=== PATIENT | female | born 1955 | race Caucasian/White ===

== ENCOUNTER 2017-12-27 11:42 | Inpatient (IN) | payer BC ==
[2017-12-27 14:06] LABS: ADD MAN DIFF? NO; BASOPHILS % 0.4 % (0.0-2.0); EOSINOPHILS # 0.1 10^3/ul (0.0-0.5); EOSINOPHILS % 1.7 % (0.0-7.0); HEMATOCRIT 37.8 % (37.0-47.0); HEMOGLOBIN 12.6 g/dl (12.0-16.0); LYMPHOCYTES # 1.2 10^3/ul (0.8-2.9); LYMPHOCYTES % 21.9 % (15.0-51.0); MEAN CORPUSCULAR HGB CONC 33.3 g/dl (32.0-37.0); MEAN CORPUSCULAR VOLUME 87.1 fl (82.0-101.0); MEAN PLATELET VOLUME 9.1 fl (7.4-10.4); MONOCYTE # 0.2 10^3/ul (0.3-0.9); MONOCYTES % 4.5 % (0.0-11.0); NEUTROPHIL # 3.8 10^3/ul (1.6-7.5); NEUTROPHILS % 71.1 % (39.0-77.0); PLATELET COUNT 292 10^3/UL (140-415); RED BLOOD COUNT 4.34 10^6/ul (4.20-5.40); RED CELL DISTRIBUTION WIDTH 14.5 % (11.5-14.5)
[2017-12-27 14:06] LABS: WHITE BLOOD COUNT 5.4 10^3/ul (4.8-10.8)
[2017-12-27 14:09] LABS: ADD UMIC YES; UR ASCORBIC ACID NEGATIVE (NEGATIVE); UR BILIRUBIN (Dip) NEGATIVE (NEGATIVE); UR BLOOD (Dip) 1+ mg/dL (NEGATIVE); UR CLARITY CLEAR (CLEAR); UR COLOR STRAW (YELLOW); UR GLUCOSE (Dip) 3+ mg/dL (NEGATIVE); UR KETONES (Dip) NEGATIVE (NEGATIVE); UR LEUKOCYTE ESTERASE (Dip) NEGATIVE Leu/ul (NEGATIVE); UR NITRITE (Dip) NEGATIVE (NEGATIVE); UR RBC 3 /HPF (0-5); UR SQUAMOUS EPITHELIAL CELL FEW /HPF (FEW); UR TOTAL PROTEIN (Dip) 3+ mg/dl (NEGATIVE); UR UROBILINOGEN (Dip) NEGATIVE (NEGATIVE); UR WBC 2 /HPF (0-5)
[2017-12-27] MEDS: SOD CHLORIDE 0.9% 1,000 ML IV (14:18)
[2017-12-27 14:46] LABS: ALANINE AMINOTRANSFERASE 27 IU/L (13-69); ALBUMIN/GLOBULIN RATIO 0.85; ALKALINE PHOSPHATASE 147 IU/L (42-121); ANION GAP 11 (8-16); ASPARTATE AMINO TRANSFERASE 25 IU/L (15-46); BILIRUBIN,INDIRECT 0.1 mg/dl (0-1.1); BILIRUBIN,TOTAL 0.1 mg/dl (0.2-1.3); BLOOD UREA NITROGEN 28 mg/dl (7-20); CARBON DIOXIDE 27 mmol/L (21-31); CHLORIDE 103 mmol/L (97-110); CREATININE 1.47 mg/dl (0.44-1.00); LIPASE 91 U/L (23-300); POTASSIUM 4.3 mmol/L (3.5-5.1); SODIUM 137 mmol/L (135-144); TOTAL PROTEIN 6.5 g/dl (6.1-8.1)
[2017-12-27 14:48] LABS: GLUCOSE 492 mg/dl (70-220)
[2017-12-27 14:49] LABS: ACETONE NEGATIVE (NEGATIVE)
[2017-12-27] MEDS: INSULIN REGULAR, HUMAN 100 UNIT/1 ML 3ML VIAL SC (15:49)
[2017-12-27] MEDS ORDERED: LORAZEPAM 0.5 MG TAB PO (17:30)
[2017-12-27] MEDS ORDERED: ACETAMINOPHEN 325 MG TAB PO (17:30)
[2017-12-27] MEDS ORDERED: NACL 0.9% 3 ML SYG IV (17:30)
[2017-12-27] MEDS ORDERED: ONDANSETRON 4 MG INJ IV ×2 (17:30)
[2017-12-27] MEDS ORDERED: morphine 2 MG INJ IV (17:30)
[2017-12-27] MEDS ORDERED: HYDROCODONE/APAP (5/325) TAB PO (17:30)
[2017-12-27] MEDS ORDERED: GLUCAGON 1 MG INJ IM (18:30)
[2017-12-27] MEDS ORDERED: GLUCOSE GEL 15 GRAM TUBE BUCCAL (18:30)
[2017-12-27] MEDS ORDERED: DEXTROSE 50% 50 ML SYRINGE IV ×2 (18:30)
[2017-12-27] MEDS ORDERED: GLUCOSE GEL 15 GRAM TUBE PO ×2 (18:30)
[2017-12-27] MEDS: hydrALAzine 20 MG INJ IV (18:49)
[2017-12-27] MEDS ORDERED: AMLODIPINE 10 MG TAB PO ×2 (19:00)
[2017-12-27] MEDS: INSULIN ASPART [NOVOLOG] 3 ML PEN SC ×2 (19:05→21:07)
[2017-12-27] MEDS: ARTIFICIAL TEARS 15 ML OPH BOTH EYES (21:03)
[2017-12-27] MEDS: ATORVASTATIN 80 MG TAB PO (21:04)
[2017-12-27] MEDS: GABAPENTIN 300 MG CAP PO (21:04)
[2017-12-27] MEDS: INSULIN GLARGINE [LANtus] 3 ML PEN SC (21:07)
[2017-12-27] MEDS: SOD CHLORIDE 0.45% 1,000 ML IV (23:12)
[2017-12-27] MEDS: ACETAMINOPHEN 325 MG TAB PO (23:16)
[2017-12-28] MEDS: ACCU-CHEK XX (02:00)
[2017-12-28] MEDS: SOD CHLORIDE 0.45% 1,000 ML IV ×2 (05:34→12:27)
[2017-12-28] MEDS ORDERED: LEVOTHYROXINE 50 MCG TAB (05:38)
[2017-12-28] MEDS: LEVOTHYROXINE 50 MCG TAB PO (05:39)
[2017-12-28] MEDS: PANTOPRAZOLE (EC) 40 MG TAB PO (05:40)
[2017-12-28 07:20] LABS: ADD MAN DIFF? NO
[2017-12-28 07:27] LABS: BASOPHILS % 0.6 % (0.0-2.0); EOSINOPHILS # 0.2 10^3/ul (0.0-0.5); HEMATOCRIT 30.8 % (37.0-47.0); HEMOGLOBIN 10.3 g/dl (12.0-16.0); LYMPHOCYTES # 1.8 10^3/ul (0.8-2.9); LYMPHOCYTES % 34.9 % (15.0-51.0); MEAN CORPUSCULAR HEMOGLOBIN 28.9 pg (29.0-33.0); MEAN CORPUSCULAR HGB CONC 33.4 g/dl (32.0-37.0); MEAN CORPUSCULAR VOLUME 86.3 fl (82.0-101.0); MEAN PLATELET VOLUME 9.6 fl (7.4-10.4); MONOCYTE # 0.3 10^3/ul (0.3-0.9); MONOCYTES % 6.3 % (0.0-11.0); NEUTROPHIL # 2.8 10^3/ul (1.6-7.5); PLATELET COUNT 260 10^3/UL (140-415); RED BLOOD COUNT 3.57 10^6/ul (4.20-5.40)
[2017-12-28 07:43] LABS: HEMOGLOBIN A1C 8.3 % (0-5.9)
[2017-12-28 07:53] LABS: ALANINE AMINOTRANSFERASE 22 IU/L (13-69); ALBUMIN 2.1 g/dl (3.3-4.9); ALBUMIN/GLOBULIN RATIO 0.72; ALKALINE PHOSPHATASE 75 IU/L (42-121); ANION GAP 3 (8-16); ASPARTATE AMINO TRANSFERASE 17 IU/L (15-46); BLOOD UREA NITROGEN 25 mg/dl (7-20); CALCIUM 8.5 mg/dl (8.4-10.2); CARBON DIOXIDE 25 mmol/L (21-31); CHLORIDE 110 mmol/L (97-110); CHOLESTEROL 275 mg/dl (100-200); CREATININE 1.57 mg/dl (0.44-1.00); GLUCOSE 207 mg/dl (70-220); HDL CHOLESTEROL 54 mg/dl (35-98); LDL CHOLESTEROL,CALCULATED 165 mg/dl; POTASSIUM 3.3 mmol/L (3.5-5.1); SODIUM 135 mmol/L (135-144); TRIGLYCERIDES 278 mg/dl (0-149)
[2017-12-28] MEDS: FOLIC ACID 1 MG TAB PO (08:33)
[2017-12-28] MEDS: DOCUSATE SODIUM 250 MG CAP PO (08:33)
[2017-12-28] MEDS: GABAPENTIN 300 MG CAP PO ×2 (08:33→20:29)
[2017-12-28] MEDS: METOPROLOL (XL) 50 MG TAB PO (08:34)
[2017-12-28] MEDS: FERROUS SULFATE (EC) 325 MG TAB PO (08:34)
[2017-12-28] MEDS: HYDROCHLOROTHIAZIDE 25 MG TAB PO (08:34)
[2017-12-28] MEDS: FUROSEMIDE 40 MG TAB PO (08:34)
[2017-12-28] MEDS: ARTIFICIAL TEARS 15 ML OPH BOTH EYES ×3 (08:35→20:29)
[2017-12-28] MEDS: INSULIN ASPART [NOVOLOG] 3 ML PEN SC ×7 (08:36→20:31)
[2017-12-28] MEDS: LOSARTAN 50 MG TAB PO (08:42)
[2017-12-28] MEDS: POTASSIUM CHLORIDE 20 MEQ POWDER FOR ORAL SOLN PO (10:32)
[2017-12-28] MEDS: ACETAMINOPHEN 325 MG TAB PO ×2 (10:32→17:18)
[2017-12-28] MEDS: ATORVASTATIN 80 MG TAB PO (20:29)
[2017-12-28] MEDS: INSULIN GLARGINE [LANtus] 3 ML PEN SC (20:30)
[2017-12-28] MEDS: hydrALAzine 20 MG INJ IV (20:33)
[2017-12-29] MEDS: ACCU-CHEK XX (01:47)
[2017-12-29] MEDS: ACETAMINOPHEN 325 MG TAB PO ×2 (04:02→11:54)
[2017-12-29 06:03] LABS: ADD MAN DIFF? NO
[2017-12-29 06:09] LABS: WHITE BLOOD COUNT 4.6 10^3/ul (4.8-10.8)
[2017-12-29 06:09] LABS: BASOPHILS % 0.4 % (0.0-2.0); EOSINOPHILS # 0.1 10^3/ul (0.0-0.5); EOSINOPHILS % 2.4 % (0.0-7.0); HEMATOCRIT 31.5 % (37.0-47.0); HEMOGLOBIN 10.3 g/dl (12.0-16.0); LYMPHOCYTES # 1.4 10^3/ul (0.8-2.9); LYMPHOCYTES % 31.1 % (15.0-51.0); MEAN CORPUSCULAR HEMOGLOBIN 28.7 pg (29.0-33.0); MEAN CORPUSCULAR HGB CONC 32.7 g/dl (32.0-37.0); MEAN CORPUSCULAR VOLUME 87.7 fl (82.0-101.0); MEAN PLATELET VOLUME 9.3 fl (7.4-10.4); MONOCYTE # 0.3 10^3/ul (0.3-0.9); MONOCYTES % 6.6 % (0.0-11.0); NEUTROPHIL # 2.7 10^3/ul (1.6-7.5); NEUTROPHILS % 59.3 % (39.0-77.0); PLATELET COUNT 256 10^3/UL (140-415); RED BLOOD COUNT 3.59 10^6/ul (4.20-5.40); RED CELL DISTRIBUTION WIDTH 14.9 % (11.5-14.5)
[2017-12-29] MEDS: LEVOTHYROXINE 50 MCG TAB PO (06:21)
[2017-12-29] MEDS: PANTOPRAZOLE (EC) 40 MG TAB PO (06:21)
[2017-12-29 06:40] LABS: ANION GAP 6 (8-16); BLOOD UREA NITROGEN 29 mg/dl (7-20); CALCIUM 8.3 mg/dl (8.4-10.2); CARBON DIOXIDE 24 mmol/L (21-31); CHLORIDE 107 mmol/L (97-110); CREATININE 1.69 mg/dl (0.44-1.00); GLUCOSE 239 mg/dl (70-220); MAGNESIUM 2.2 mg/dl (1.7-2.5); POTASSIUM 3.7 mmol/L (3.5-5.1); SODIUM 133 mmol/L (135-144)
[2017-12-29] MEDS: INSULIN ASPART [NOVOLOG] 3 ML PEN SC ×7 (08:00→21:57)
[2017-12-29] MEDS: METOPROLOL (XL) 50 MG TAB PO (08:27)
[2017-12-29] MEDS: LOSARTAN 50 MG TAB PO (08:27)
[2017-12-29] MEDS: FOLIC ACID 1 MG TAB PO (08:27)
[2017-12-29] MEDS: HYDROCHLOROTHIAZIDE 25 MG TAB PO (08:27)
[2017-12-29] MEDS: FERROUS SULFATE (EC) 325 MG TAB PO (08:27)
[2017-12-29] MEDS: GABAPENTIN 300 MG CAP PO ×2 (08:27→21:51)
[2017-12-29] MEDS: DOCUSATE SODIUM 250 MG CAP PO (08:27)
[2017-12-29] MEDS: ARTIFICIAL TEARS 15 ML OPH BOTH EYES ×3 (08:28→21:50)
[2017-12-29] MEDS: AMLODIPINE 5 MG TAB PO (11:40)
[2017-12-29] MEDS: hydrALAzine 20 MG INJ IV (14:27)
[2017-12-29] MEDS: ATORVASTATIN 80 MG TAB PO (21:51)
[2017-12-29] MEDS: INSULIN GLARGINE [LANtus] 3 ML PEN SC (21:56)
[2017-12-30] MEDS: ACCU-CHEK XX (02:00)
[2017-12-30] MEDS: LEVOTHYROXINE 50 MCG TAB PO (06:02)
[2017-12-30] MEDS: PANTOPRAZOLE (EC) 40 MG TAB PO (06:02)
[2017-12-30 06:39] LABS: ADD MAN DIFF? NO
[2017-12-30 06:42] LABS: BASOPHILS % 0.2 % (0.0-2.0); EOSINOPHILS # 0.1 10^3/ul (0.0-0.5); EOSINOPHILS % 1.6 % (0.0-7.0); HEMATOCRIT 33.7 % (37.0-47.0); LYMPHOCYTES % 15.9 % (15.0-51.0); MEAN CORPUSCULAR HEMOGLOBIN 28.6 pg (29.0-33.0); MEAN CORPUSCULAR HGB CONC 32.6 g/dl (32.0-37.0); MEAN CORPUSCULAR VOLUME 87.8 fl (82.0-101.0); MEAN PLATELET VOLUME 9.4 fl (7.4-10.4); MONOCYTE # 0.3 10^3/ul (0.3-0.9); MONOCYTES % 5.4 % (0.0-11.0); NEUTROPHIL # 4.9 10^3/ul (1.6-7.5); NEUTROPHILS % 76.6 % (39.0-77.0); PLATELET COUNT 274 10^3/UL (140-415); RED BLOOD COUNT 3.84 10^6/ul (4.20-5.40); RED CELL DISTRIBUTION WIDTH 15.1 % (11.5-14.5)
[2017-12-30 06:42] LABS: WHITE BLOOD COUNT 6.3 10^3/ul (4.8-10.8)
[2017-12-30 07:07] LABS: ANION GAP 7 (8-16); BLOOD UREA NITROGEN 42 mg/dl (7-20); CALCIUM 8.7 mg/dl (8.4-10.2); CARBON DIOXIDE 25 mmol/L (21-31); CHLORIDE 108 mmol/L (97-110); CREATININE 1.88 mg/dl (0.44-1.00); GLUCOSE 292 mg/dl (70-220); MAGNESIUM 2.4 mg/dl (1.7-2.5); PHOSPHORUS 5.4 mg/dl (2.5-4.9); SODIUM 136 mmol/L (135-144)
[2017-12-30] MEDS: INSULIN ASPART [NOVOLOG] 3 ML PEN SC ×7 (08:17→20:52)
[2017-12-30] MEDS: FOLIC ACID 1 MG TAB PO (08:18)
[2017-12-30] MEDS: FERROUS SULFATE (EC) 325 MG TAB PO (08:18)
[2017-12-30] MEDS: GABAPENTIN 300 MG CAP PO ×2 (08:18→20:53)
[2017-12-30] MEDS: METOPROLOL (XL) 50 MG TAB PO (08:19)
[2017-12-30] MEDS: DOCUSATE SODIUM 250 MG CAP PO (08:20)
[2017-12-30] MEDS: ARTIFICIAL TEARS 15 ML OPH BOTH EYES ×3 (08:20→20:53)
[2017-12-30] MEDS: HYDROCHLOROTHIAZIDE 25 MG TAB PO (08:20)
[2017-12-30] MEDS: AMLODIPINE 5 MG TAB PO ×2 (08:20→11:24)
[2017-12-30] MEDS: LOSARTAN 50 MG TAB PO (08:20)
[2017-12-30] MEDS: ACETAMINOPHEN 325 MG TAB PO (10:46)
[2017-12-30] MEDS: LINAGLIPTIN 5 MG TABLET PO (11:24)
[2017-12-30] MEDS: LIDOCAINE 5% PATCH TD (12:26)
[2017-12-30] MEDS: ATORVASTATIN 80 MG TAB PO (20:53)
[2017-12-30] MEDS: INSULIN GLARGINE [LANtus] 3 ML PEN SC (20:55)
[2017-12-31] MEDS: ACCU-CHEK XX (02:00)
[2017-12-31] MEDS: PANTOPRAZOLE (EC) 40 MG TAB PO (05:27)
[2017-12-31] MEDS: LEVOTHYROXINE 50 MCG TAB PO (05:27)
[2017-12-31 06:18] LABS: ALBUMIN 2.3 g/dl (3.3-4.9); ANION GAP 7 (8-16); BLOOD UREA NITROGEN 40 mg/dl (7-20); CALCIUM 8.3 mg/dl (8.4-10.2); CARBON DIOXIDE 27 mmol/L (21-31); CHLORIDE 110 mmol/L (97-110); CREATININE 1.83 mg/dl (0.44-1.00); GLUCOSE 181 mg/dl (70-220); MAGNESIUM 2.4 mg/dl (1.7-2.5); PHOSPHORUS 4.7 mg/dl (2.5-4.9); POTASSIUM 4.2 mmol/L (3.5-5.1); SODIUM 140 mmol/L (135-144)
[2017-12-31] MEDS: INSULIN ASPART [NOVOLOG] 3 ML PEN SC ×7 (08:25→20:13)
[2017-12-31] MEDS: LIDOCAINE 5% PATCH TD (08:27)
[2017-12-31] MEDS: HYDROCHLOROTHIAZIDE 25 MG TAB PO (08:27)
[2017-12-31] MEDS: DOCUSATE SODIUM 250 MG CAP PO (08:28)
[2017-12-31] MEDS: FOLIC ACID 1 MG TAB PO (08:28)
[2017-12-31] MEDS: LINAGLIPTIN 5 MG TABLET PO (08:28)
[2017-12-31] MEDS: METOPROLOL (XL) 50 MG TAB PO (08:28)
[2017-12-31] MEDS: LOSARTAN 50 MG TAB PO (08:28)
[2017-12-31] MEDS: FERROUS SULFATE (EC) 325 MG TAB PO (08:28)
[2017-12-31] MEDS: GABAPENTIN 300 MG CAP PO ×2 (08:28→20:10)
[2017-12-31] MEDS: AMLODIPINE 10 MG TAB PO (08:29)
[2017-12-31] MEDS: ARTIFICIAL TEARS 15 ML OPH BOTH EYES ×3 (08:29→20:10)
[2017-12-31] MEDS: ACETAMINOPHEN 325 MG TAB PO (20:10)
[2017-12-31] MEDS: ATORVASTATIN 80 MG TAB PO (20:10)
[2017-12-31] MEDS: INSULIN GLARGINE [LANtus] 3 ML PEN SC (20:14)
[2018-01-01] MEDS: ACCU-CHEK XX (02:00)
[2018-01-01] MEDS: PANTOPRAZOLE (EC) 40 MG TAB PO (05:28)
[2018-01-01] MEDS: LEVOTHYROXINE 50 MCG TAB PO (06:12)
[2018-01-01 07:14] LABS: ALBUMIN 2.1 g/dl (3.3-4.9); ANION GAP 5 (8-16); BLOOD UREA NITROGEN 45 mg/dl (7-20); CALCIUM 8.4 mg/dl (8.4-10.2); CARBON DIOXIDE 27 mmol/L (21-31); CHLORIDE 111 mmol/L (97-110); GLUCOSE 129 mg/dl (70-220); MAGNESIUM 2.4 mg/dl (1.7-2.5); POTASSIUM 4.2 mmol/L (3.5-5.1); SODIUM 139 mmol/L (135-144)
[2018-01-01] MEDS: INSULIN ASPART [NOVOLOG] 3 ML PEN SC ×7 (08:00→20:26)
[2018-01-01] MEDS: LOSARTAN 50 MG TAB PO (09:00)
[2018-01-01] MEDS: FOLIC ACID 1 MG TAB PO (09:28)
[2018-01-01] MEDS: DOCUSATE SODIUM 250 MG CAP PO (09:28)
[2018-01-01] MEDS: GABAPENTIN 300 MG CAP PO ×2 (09:30→20:26)
[2018-01-01] MEDS: AMLODIPINE 10 MG TAB PO (09:30)
[2018-01-01] MEDS: FERROUS SULFATE (EC) 325 MG TAB PO (09:30)
[2018-01-01] MEDS: LINAGLIPTIN 5 MG TABLET PO (09:30)
[2018-01-01] MEDS: METOPROLOL (XL) 50 MG TAB PO (09:31)
[2018-01-01] MEDS: HYDROCHLOROTHIAZIDE 12.5 MG CAP PO (09:31)
[2018-01-01] MEDS: LIDOCAINE 5% PATCH TD (09:35)
[2018-01-01] MEDS: ARTIFICIAL TEARS 15 ML OPH BOTH EYES ×3 (10:00→20:26)
[2018-01-01 17:10] LABS: ADD UMIC YES; UR ASCORBIC ACID NEGATIVE (NEGATIVE); UR BACTERIA FEW /HPF (NONE SEEN); UR BILIRUBIN (Dip) NEGATIVE (NEGATIVE); UR BLOOD (Dip) 1+ mg/dL (NEGATIVE); UR CLARITY CLEAR (CLEAR); UR COLOR STRAW (YELLOW); UR GLUCOSE (Dip) 3+ mg/dL (NEGATIVE); UR KETONES (Dip) NEGATIVE (NEGATIVE); UR LEUKOCYTE ESTERASE (Dip) NEGATIVE Leu/ul (NEGATIVE); UR NITRITE (Dip) NEGATIVE (NEGATIVE); UR RBC 1 /HPF (0-5); UR SPECIFIC GRAVITY (Dip) 1.007 (1.003-1.030); UR SQUAMOUS EPITHELIAL CELL FEW /HPF (FEW); UR TOTAL PROTEIN (Dip) 3+ mg/dl (NEGATIVE); UR UROBILINOGEN (Dip) NEGATIVE (NEGATIVE); UR WBC 2 /HPF (0-5)
[2018-01-01 17:24] LABS: SODIUM,URINE RANDOM 60 mmol/L (30-90)
[2018-01-01 17:26] LABS: CREATININE,URINE RANDOM 28.25 mg/dl (20-320)
[2018-01-01 17:45] LABS: OSMOLALITY,URINE 274 mOsm/kg (250-1200)
[2018-01-01] MEDS: ATORVASTATIN 80 MG TAB PO (20:26)
[2018-01-01] MEDS: INSULIN GLARGINE [LANtus] 3 ML PEN SC (20:28)
[2018-01-01] MEDS: ACETAMINOPHEN 325 MG TAB PO (20:28)
[2018-01-01 20:49] LABS: PROTEIN URINE > 600.0 mg/dl (0.0-11.9)
[2018-01-02] MEDS: ACCU-CHEK XX (02:00)
[2018-01-02] MEDS: LEVOTHYROXINE 50 MCG TAB PO (06:05)
[2018-01-02] MEDS: PANTOPRAZOLE (EC) 40 MG TAB PO (06:05)
[2018-01-02 06:21] LABS: ADD MAN DIFF? NO
[2018-01-02 06:27] LABS: BASOPHILS % 0.4 % (0.0-2.0); EOSINOPHILS # 0.1 10^3/ul (0.0-0.5); HEMATOCRIT 31.1 % (37.0-47.0); HEMOGLOBIN 10.2 g/dl (12.0-16.0); LYMPHOCYTES # 1.9 10^3/ul (0.8-2.9); LYMPHOCYTES % 39.6 % (15.0-51.0); MEAN CORPUSCULAR HEMOGLOBIN 29.2 pg (29.0-33.0); MEAN CORPUSCULAR HGB CONC 32.8 g/dl (32.0-37.0); MEAN CORPUSCULAR VOLUME 89.1 fl (82.0-101.0); MEAN PLATELET VOLUME 9.4 fl (7.4-10.4); MONOCYTE # 0.3 10^3/ul (0.3-0.9); MONOCYTES % 6.8 % (0.0-11.0); NEUTROPHIL # 2.4 10^3/ul (1.6-7.5); PLATELET COUNT 269 10^3/UL (140-415); RED BLOOD COUNT 3.49 10^6/ul (4.20-5.40); RED CELL DISTRIBUTION WIDTH 14.8 % (11.5-14.5)
[2018-01-02 06:27] LABS: WHITE BLOOD COUNT 4.7 10^3/ul (4.8-10.8)
[2018-01-02 06:59] LABS: ALBUMIN 2.4 g/dl (3.3-4.9); ANION GAP 8 (8-16); BLOOD UREA NITROGEN 51 mg/dl (7-20); CALCIUM 8.6 mg/dl (8.4-10.2); CARBON DIOXIDE 28 mmol/L (21-31); CHLORIDE 108 mmol/L (97-110); CREATININE 1.85 mg/dl (0.44-1.00); GLUCOSE 176 mg/dl (70-220); MAGNESIUM 2.4 mg/dl (1.7-2.5); PHOSPHORUS 5.1 mg/dl (2.5-4.9); POTASSIUM 4.6 mmol/L (3.5-5.1); SODIUM 139 mmol/L (135-144)
[2018-01-02] MEDS: INSULIN ASPART [NOVOLOG] 3 ML PEN SC ×7 (08:05→20:18)
[2018-01-02] MEDS: DOCUSATE SODIUM 250 MG CAP PO (08:07)
[2018-01-02] MEDS: AMLODIPINE 10 MG TAB PO (08:07)
[2018-01-02] MEDS: FERROUS SULFATE (EC) 325 MG TAB PO (08:07)
[2018-01-02] MEDS: FOLIC ACID 1 MG TAB PO (08:07)
[2018-01-02] MEDS: GABAPENTIN 300 MG CAP PO ×2 (08:07→20:17)
[2018-01-02] MEDS: METOPROLOL (XL) 50 MG TAB PO (08:07)
[2018-01-02] MEDS: ARTIFICIAL TEARS 15 ML OPH BOTH EYES ×3 (08:07→20:18)
[2018-01-02] MEDS: LINAGLIPTIN 5 MG TABLET PO (08:07)
[2018-01-02] MEDS: LIDOCAINE 5% PATCH TD ×2 (08:08→13:08)
[2018-01-02] MEDS: HYDROCHLOROTHIAZIDE 12.5 MG CAP PO (08:08)
[2018-01-02] MEDS: ACETAMINOPHEN 325 MG TAB PO (11:22)
[2018-01-02] MEDS ORDERED: DOCUSATE SODIUM 250 MG CAP PO (12:30)
[2018-01-02 16:01] LABS: CREATININE, RANDOM URINE 36 mg/dL (20-320); MICROALBUMIN 272.4 mg/dL; MICROALBUMIN/CREATININE RATIO 7567 (<30)
[2018-01-02] MEDS: ATORVASTATIN 80 MG TAB PO (20:17)
[2018-01-02] MEDS: INSULIN GLARGINE [LANtus] 3 ML PEN SC (20:20)
[2018-01-03] MEDS: ACCU-CHEK XX (01:39)
[2018-01-03 06:16] LABS: ALBUMIN 2.4 g/dl (3.3-4.9); ANION GAP 8 (8-16); BLOOD UREA NITROGEN 61 mg/dl (7-20); CALCIUM 8.6 mg/dl (8.4-10.2); CARBON DIOXIDE 24 mmol/L (21-31); CHLORIDE 108 mmol/L (97-110); CREATININE 1.85 mg/dl (0.44-1.00); GLUCOSE 209 mg/dl (70-220); MAGNESIUM 2.4 mg/dl (1.7-2.5); POTASSIUM 4.4 mmol/L (3.5-5.1); SODIUM 136 mmol/L (135-144)
[2018-01-03] MEDS: LEVOTHYROXINE 50 MCG TAB PO (06:21)
[2018-01-03] MEDS: AMLODIPINE 10 MG TAB PO (08:02)
[2018-01-03] MEDS: ARTIFICIAL TEARS 15 ML OPH BOTH EYES ×3 (08:02→20:17)
[2018-01-03] MEDS: LINAGLIPTIN 5 MG TABLET PO (08:03)
[2018-01-03] MEDS: GABAPENTIN 300 MG CAP PO ×2 (08:03→20:17)
[2018-01-03] MEDS: FOLIC ACID 1 MG TAB PO (08:03)
[2018-01-03] MEDS: METOPROLOL (XL) 50 MG TAB PO (08:03)
[2018-01-03] MEDS: LIDOCAINE 5% PATCH TD ×2 (08:05→08:06)
[2018-01-03] MEDS: INSULIN ASPART [NOVOLOG] 3 ML PEN SC ×7 (08:07→20:20)
[2018-01-03] MEDS: FERROUS SULFATE (EC) 325 MG TAB PO (10:02)
[2018-01-03] MEDS: ACETAMINOPHEN 325 MG TAB PO (16:20)
[2018-01-03] MEDS: ATORVASTATIN 80 MG TAB PO (20:17)
[2018-01-03] MEDS: INSULIN GLARGINE [LANtus] 3 ML PEN SC (20:19)
[2018-01-04] MEDS: ACCU-CHEK XX (01:38)
[2018-01-04] MEDS: hydrALAzine 20 MG INJ IV (01:40)
[2018-01-04] MEDS: ACETAMINOPHEN 325 MG TAB PO (02:50)
[2018-01-04 06:18] LABS: ALBUMIN 2.3 g/dl (3.3-4.9); ANION GAP 9 (8-16); BLOOD UREA NITROGEN 62 mg/dl (7-20); CALCIUM 8.5 mg/dl (8.4-10.2); CARBON DIOXIDE 25 mmol/L (21-31); CHLORIDE 112 mmol/L (97-110); CREATININE 1.73 mg/dl (0.44-1.00); GLUCOSE 116 mg/dl (70-220); MAGNESIUM 2.2 mg/dl (1.7-2.5); PHOSPHORUS 4.9 mg/dl (2.5-4.9); POTASSIUM 3.9 mmol/L (3.5-5.1); SODIUM 142 mmol/L (135-144)
[2018-01-04] MEDS: LEVOTHYROXINE 50 MCG TAB PO (06:37)
[2018-01-04] MEDS: INSULIN ASPART [NOVOLOG] 3 ML PEN SC ×7 (08:00→20:40)
[2018-01-04] MEDS: ARTIFICIAL TEARS 15 ML OPH BOTH EYES ×3 (08:16→20:35)
[2018-01-04] MEDS: METOPROLOL (XL) 50 MG TAB PO (08:17)
[2018-01-04] MEDS: AMLODIPINE 10 MG TAB PO (08:17)
[2018-01-04] MEDS: FERROUS SULFATE (EC) 325 MG TAB PO (08:17)
[2018-01-04] MEDS: FOLIC ACID 1 MG TAB PO (08:17)
[2018-01-04] MEDS: LINAGLIPTIN 5 MG TABLET PO (08:17)
[2018-01-04] MEDS: GABAPENTIN 300 MG CAP PO ×2 (08:17→20:36)
[2018-01-04] MEDS: LIDOCAINE 5% PATCH TD ×3 (08:21→20:37)
[2018-01-04] MEDS: LOSARTAN 50 MG TAB PO (14:14)
[2018-01-04] MEDS: SALINE 0.65% 45 ML NAS SPRAY NASAL (20:35)
[2018-01-04] MEDS: ATORVASTATIN 80 MG TAB PO (20:36)
[2018-01-04] MEDS: INSULIN GLARGINE [LANtus] 3 ML PEN SC (20:39)
[2018-01-05] MEDS: ACCU-CHEK XX (02:00)
[2018-01-05] MEDS: LEVOTHYROXINE 50 MCG TAB PO (05:51)
[2018-01-05 06:30] LABS: ALBUMIN 2.4 g/dl (3.3-4.9); ANION GAP 12 (8-16); BLOOD UREA NITROGEN 68 mg/dl (7-20); CALCIUM 8.3 mg/dl (8.4-10.2); CARBON DIOXIDE 23 mmol/L (21-31); CHLORIDE 112 mmol/L (97-110); CREATININE 1.88 mg/dl (0.44-1.00); GLUCOSE 162 mg/dl (70-220); MAGNESIUM 2.2 mg/dl (1.7-2.5); PHOSPHORUS 6.2 mg/dl (2.5-4.9); POTASSIUM 4.2 mmol/L (3.5-5.1); SODIUM 143 mmol/L (135-144)
[2018-01-05] MEDS: INSULIN ASPART [NOVOLOG] 3 ML PEN SC ×7 (08:09→20:04)
[2018-01-05] MEDS: LOSARTAN 50 MG TAB PO (08:11)
[2018-01-05] MEDS: LINAGLIPTIN 5 MG TABLET PO (08:11)
[2018-01-05] MEDS: FERROUS SULFATE (EC) 325 MG TAB PO (08:11)
[2018-01-05] MEDS: METOPROLOL (XL) 50 MG TAB PO (08:11)
[2018-01-05] MEDS: FOLIC ACID 1 MG TAB PO (08:11)
[2018-01-05] MEDS: GABAPENTIN 300 MG CAP PO ×2 (08:11→20:07)
[2018-01-05] MEDS: AMLODIPINE 10 MG TAB PO (08:11)
[2018-01-05] MEDS: ARTIFICIAL TEARS 15 ML OPH BOTH EYES ×3 (08:12→20:06)
[2018-01-05] MEDS: LIDOCAINE 5% PATCH TD ×3 (08:12→20:18)
[2018-01-05] MEDS: SALINE 0.65% 45 ML NAS SPRAY NASAL ×2 (08:13→20:07)
[2018-01-05] MEDS: BISACODYL (EC) 5 MG TAB PO (09:04)
[2018-01-05] MEDS ORDERED: VITAMIN A & D 5 GM OINT PACKET TOP (10:04)
[2018-01-05] MEDS: ACETAMINOPHEN 325 MG TAB PO (13:30)
[2018-01-05] MEDS: INSULIN GLARGINE [LANtus] 3 ML PEN SC (20:05)
[2018-01-05] MEDS: ATORVASTATIN 80 MG TAB PO (20:06)
[2018-01-06] MEDS: ACCU-CHEK XX (01:53)
[2018-01-06 05:27] LABS: ALBUMIN 2.5 g/dl (3.3-4.9); ANION GAP 11 (8-16); BLOOD UREA NITROGEN 73 mg/dl (7-20); CALCIUM 8.5 mg/dl (8.4-10.2); CARBON DIOXIDE 22 mmol/L (21-31); CHLORIDE 115 mmol/L (97-110); CREATININE 1.88 mg/dl (0.44-1.00); GLUCOSE 135 mg/dl (70-220); MAGNESIUM 2.2 mg/dl (1.7-2.5); PHOSPHORUS 6.6 mg/dl (2.5-4.9); POTASSIUM 4.2 mmol/L (3.5-5.1); SODIUM 144 mmol/L (135-144)
[2018-01-06] MEDS: LEVOTHYROXINE 50 MCG TAB PO (06:33)
[2018-01-06] MEDS: INSULIN ASPART [NOVOLOG] 3 ML PEN SC ×6 (08:00→20:17)
[2018-01-06] MEDS: ARTIFICIAL TEARS 15 ML OPH BOTH EYES ×3 (08:33→20:12)
[2018-01-06] MEDS: SALINE 0.65% 45 ML NAS SPRAY NASAL ×2 (08:33→20:12)
[2018-01-06] MEDS: FERROUS SULFATE (EC) 325 MG TAB PO (08:34)
[2018-01-06] MEDS: FOLIC ACID 1 MG TAB PO (08:34)
[2018-01-06] MEDS: LINAGLIPTIN 5 MG TABLET PO (08:34)
[2018-01-06] MEDS: AMLODIPINE 10 MG TAB PO (08:34)
[2018-01-06] MEDS: GABAPENTIN 300 MG CAP PO ×2 (08:34→20:13)
[2018-01-06] MEDS: METOPROLOL (XL) 50 MG TAB PO (08:34)
[2018-01-06] MEDS: LIDOCAINE 5% PATCH TD ×3 (08:36→20:14)
[2018-01-06] MEDS: glipiZIDE 5 MG TAB PO (18:34)
[2018-01-06] MEDS: ATORVASTATIN 80 MG TAB PO (20:13)
[2018-01-06] MEDS: INSULIN GLARGINE [LANtus] 3 ML PEN SC (20:16)
[2018-01-07] MEDS: ACCU-CHEK XX (01:52)
[2018-01-07] MEDS: BISACODYL (EC) 5 MG TAB PO (01:54)
[2018-01-07] MEDS: LEVOTHYROXINE 50 MCG TAB PO (06:39)
[2018-01-07 07:21] LABS: ALBUMIN 2.6 g/dl (3.3-4.9); ANION GAP 11 (8-16); BLOOD UREA NITROGEN 71 mg/dl (7-20); CALCIUM 8.9 mg/dl (8.4-10.2); CARBON DIOXIDE 23 mmol/L (21-31); CHLORIDE 116 mmol/L (97-110); CREATININE 1.97 mg/dl (0.44-1.00); GLUCOSE 75 mg/dl (70-220); MAGNESIUM 2.2 mg/dl (1.7-2.5); PHOSPHORUS 6.2 mg/dl (2.5-4.9); POTASSIUM 4.1 mmol/L (3.5-5.1); SODIUM 146 mmol/L (135-144)
[2018-01-07] MEDS ORDERED: glipiZIDE 10 MG TAB PO (07:30)
[2018-01-07] MEDS: INSULIN ASPART [NOVOLOG] 3 ML PEN SC ×4 (08:00→20:35)
[2018-01-07] MEDS: ARTIFICIAL TEARS 15 ML OPH BOTH EYES ×3 (08:58→20:31)
[2018-01-07] MEDS: FOLIC ACID 1 MG TAB PO (08:59)
[2018-01-07] MEDS: GABAPENTIN 300 MG CAP PO ×2 (08:59→20:36)
[2018-01-07] MEDS: FERROUS SULFATE (EC) 325 MG TAB PO (08:59)
[2018-01-07] MEDS: METOPROLOL (XL) 50 MG TAB PO (09:00)
[2018-01-07] MEDS ORDERED: REPAGLINIDE 1 MG TAB PO (09:00)
[2018-01-07] MEDS: LINAGLIPTIN 5 MG TABLET PO (09:00)
[2018-01-07] MEDS: AMLODIPINE 10 MG TAB PO (09:00)
[2018-01-07] MEDS: LIDOCAINE 5% PATCH TD ×3 (09:01→20:42)
[2018-01-07] MEDS: SALINE 0.65% 45 ML NAS SPRAY NASAL ×2 (09:04→21:48)
[2018-01-07] MEDS: REPAGLINIDE 2 MG TAB PO ×3 (09:16→17:37)
[2018-01-07] MEDS: ACETAMINOPHEN 325 MG TAB PO (12:24)
[2018-01-07] MEDS: INSULIN GLARGINE [LANtus] 3 ML PEN SC (20:34)
[2018-01-07] MEDS: ATORVASTATIN 80 MG TAB PO (20:36)
[2018-01-08] MEDS: ACCU-CHEK XX (01:03)
[2018-01-08] MEDS: LEVOTHYROXINE 50 MCG TAB PO (06:48)
[2018-01-08 06:55] LABS: ALBUMIN 2.5 g/dl (3.3-4.9); ANION GAP 12 (8-16); BLOOD UREA NITROGEN 72 mg/dl (7-20); CALCIUM 8.6 mg/dl (8.4-10.2); CARBON DIOXIDE 19 mmol/L (21-31); CHLORIDE 117 mmol/L (97-110); CREATININE 1.94 mg/dl (0.44-1.00); GLUCOSE 90 mg/dl (70-220); MAGNESIUM 2.1 mg/dl (1.7-2.5); PHOSPHORUS 6.6 mg/dl (2.5-4.9); SODIUM 144 mmol/L (135-144)
[2018-01-08] MEDS: INSULIN ASPART [NOVOLOG] 3 ML PEN SC ×2 (08:00→12:20)
[2018-01-08] MEDS: ARTIFICIAL TEARS 15 ML OPH BOTH EYES ×2 (08:13→12:18)
[2018-01-08] MEDS: REPAGLINIDE 2 MG TAB PO ×2 (08:13→12:17)
[2018-01-08] MEDS: SALINE 0.65% 45 ML NAS SPRAY NASAL (08:13)
[2018-01-08] MEDS: GABAPENTIN 300 MG CAP PO (08:13)
[2018-01-08] MEDS: FERROUS SULFATE (EC) 325 MG TAB PO (08:14)
[2018-01-08] MEDS: LINAGLIPTIN 5 MG TABLET PO (08:14)
[2018-01-08] MEDS: FOLIC ACID 1 MG TAB PO (08:14)
[2018-01-08] MEDS: AMLODIPINE 10 MG TAB PO (08:14)
[2018-01-08] MEDS: METOPROLOL (XL) 50 MG TAB PO (08:14)
[2018-01-08] MEDS: LIDOCAINE 5% PATCH TD ×2 (08:16→08:17)
[2018-01-08] MEDS: SEVELAMER 800 MG TAB PO (12:18)
== END 2018-01-08 15:38 | disposition home or self-care (01) | DRG 683 ==
LOC: E/R 11:42 → PP2 17:13
PROVIDERS: Internal Medicine
DX: I12.9 Hypertensive chronic kidney disease with stage 1 through stage 4 chronic kidney disease, or unspecified chronic kidney disease (principal); N17.9 Acute kidney failure, unspecified; E11.22 Type 2 diabetes mellitus with diabetic chronic kidney disease; E11.40 Type 2 diabetes mellitus with diabetic neuropathy, unspecified; N18.3 Chronic kidney disease, stage 3 (moderate); E11.65 Type 2 diabetes mellitus with hyperglycemia; E78.5 Hyperlipidemia, unspecified; K21.9 Gastro-esophageal reflux disease without esophagitis; E03.9 Hypothyroidism, unspecified; I16.0 Hypertensive urgency; R07.81 Pleurodynia; E11.319 Type 2 diabetes mellitus with unspecified diabetic retinopathy without macular edema; D64.9 Anemia, unspecified; M79.672 Pain in left foot; E83.9 Disorder of mineral metabolism, unspecified
CPT/HCPCS: 36415; 71100; 76775; 80048; 80053; 80061; 80069; 81001; 81003; 82010; 82043; 82962; 83036; 83690; 83735; 83935; 84100; 84133; 84155; 84300; 84443; 85025; 96372; 99285-25

== ENCOUNTER 2018-02-24 16:09 | Inpatient (IN) | payer BC ==
[2018-02-24 18:46] LABS: ADD MAN DIFF? NO
[2018-02-24 18:48] LABS: WHITE BLOOD COUNT 5.7 10^3/ul (4.8-10.8)
[2018-02-24 18:48] LABS: BASOPHIL # 0.1 10^3/ul (0.0-0.1); BASOPHILS % 0.9 % (0.0-2.0); EOSINOPHILS # 0.2 10^3/ul (0.0-0.5); EOSINOPHILS % 2.8 % (0.0-7.0); HEMATOCRIT 50.1 % (37.0-47.0); HEMOGLOBIN 15.8 g/dl (12.0-16.0); LYMPHOCYTES # 1.3 10^3/ul (0.8-2.9); LYMPHOCYTES % 21.8 % (15.0-51.0); MEAN CORPUSCULAR HEMOGLOBIN 27.8 pg (29.0-33.0); MEAN CORPUSCULAR HGB CONC 31.5 g/dl (32.0-37.0); MEAN CORPUSCULAR VOLUME 88.2 fl (82.0-101.0); MEAN PLATELET VOLUME 9.7 fl (7.4-10.4); MONOCYTE # 0.2 10^3/ul (0.3-0.9); MONOCYTES % 3.8 % (0.0-11.0); NEUTROPHILS % 70.5 % (39.0-77.0); PLATELET COUNT 270 10^3/UL (140-415); RED BLOOD COUNT 5.68 10^6/ul (4.20-5.40); RED CELL DISTRIBUTION WIDTH 14.8 % (11.5-14.5)
[2018-02-24 19:14] LABS: INR 0.85; PROTIME 11.7 Sec (11.9-14.9); PT RATIO 0.9
[2018-02-24 19:15] LABS: PARTIAL THROMBOPLASTIN TIME 26.8 Sec (25.0-35.0)
[2018-02-24 19:19] LABS: B-TYPE NATRIURETIC PEPTIDE 9130 PG/ML (0-125); TROPONIN-I 0.013 ng/ml (0.00-0.12)
[2018-02-24 19:21] LABS: ALANINE AMINOTRANSFERASE 22 IU/L (13-69); ALBUMIN 2.8 g/dl (3.3-4.9); ALBUMIN/GLOBULIN RATIO 0.77; ALKALINE PHOSPHATASE 192 IU/L (42-121); ANION GAP 11 (8-16); ASPARTATE AMINO TRANSFERASE 27 IU/L (15-46); BILIRUBIN,INDIRECT 0.1 mg/dl (0-1.1); BILIRUBIN,TOTAL 0.1 mg/dl (0.2-1.3); BLOOD UREA NITROGEN 43 mg/dl (7-20); CALCIUM 9.1 mg/dl (8.4-10.2); CARBON DIOXIDE 22 mmol/L (21-31); CHLORIDE 109 mmol/L (97-110); CREATININE 2.14 mg/dl (0.44-1.00); POTASSIUM 4.6 mmol/L (3.5-5.1); SODIUM 137 mmol/L (135-144); TOTAL PROTEIN 6.4 g/dl (6.1-8.1)
[2018-02-24 19:37] LABS: GLUCOSE 405 mg/dl (70-220)
[2018-02-24] MEDS: FUROSEMIDE 40 MG INJ IV (19:59)
[2018-02-24] MEDS: INSULIN LISPRO 100 UNIT/ML VIAL SC (20:04)
[2018-02-24] MEDS: hydrALAzine 20 MG INJ IV (20:38)
[2018-02-24] MEDS ORDERED: NACL 0.9% 3 ML SYG IV (22:00)
[2018-02-24] MEDS: HEPARIN 5,000 UNIT/0.5 ML VIAL SC (22:00)
[2018-02-24] MEDS ORDERED: GLUCOSE GEL 15 GRAM TUBE PO ×2 (23:00)
[2018-02-24] MEDS ORDERED: DEXTROSE 50% 50 ML SYRINGE IV ×2 (23:00)
[2018-02-24] MEDS ORDERED: GLUCOSE GEL 15 GRAM TUBE BUCCAL (23:00)
[2018-02-24] MEDS ORDERED: GLUCAGON 1 MG INJ IM (23:00)
[2018-02-24] MEDS: ONDANSETRON 4 MG INJ IV (23:48)
[2018-02-25] MEDS: INSULIN GLARGINE [LANtus] 3 ML PEN SC ×2 (00:18→21:07)
[2018-02-25] MEDS: ACCU-CHEK XX (02:00)
[2018-02-25] MEDS: ACETAMINOPHEN 325 MG TAB PO ×2 (03:50→15:11)
[2018-02-25] MEDS: INSULIN ASPART [NOVOLOG] 3 ML PEN SC ×4 (07:55→21:00)
[2018-02-25] MEDS: PANTOPRAZOLE (EC) 40 MG TAB PO (08:25)
[2018-02-25] MEDS: LEVOTHYROXINE 50 MCG TAB PO (08:25)
[2018-02-25] MEDS: HEPARIN 5,000 UNIT/0.5 ML VIAL SC ×3 (08:26→21:53)
[2018-02-25] MEDS: AMLODIPINE 10 MG TAB PO (08:31)
[2018-02-25] MEDS: BUMETANIDE 1 MG INJ IV ×2 (08:31→17:06)
[2018-02-25] MEDS: GABAPENTIN 300 MG CAP PO ×2 (08:31→21:13)
[2018-02-25] MEDS: METOPROLOL (XL) 50 MG TAB PO (08:32)
[2018-02-25 09:03] LABS: ADD MAN DIFF? NO
[2018-02-25 09:07] LABS: BASOPHILS % 0.7 % (0.0-2.0); EOSINOPHILS # 0.2 10^3/ul (0.0-0.5); EOSINOPHILS % 2.8 % (0.0-7.0); HEMATOCRIT 47.9 % (37.0-47.0); LYMPHOCYTES # 1.7 10^3/ul (0.8-2.9); LYMPHOCYTES % 30.7 % (15.0-51.0); MEAN CORPUSCULAR HEMOGLOBIN 27.7 pg (29.0-33.0); MEAN CORPUSCULAR HGB CONC 31.3 g/dl (32.0-37.0); MEAN CORPUSCULAR VOLUME 88.4 fl (82.0-101.0); MEAN PLATELET VOLUME 9.6 fl (7.4-10.4); MONOCYTE # 0.2 10^3/ul (0.3-0.9); MONOCYTES % 3.7 % (0.0-11.0); NEUTROPHIL # 3.5 10^3/ul (1.6-7.5); NEUTROPHILS % 61.9 % (39.0-77.0); PLATELET COUNT 294 10^3/UL (140-415); RED BLOOD COUNT 5.42 10^6/ul (4.20-5.40); RED CELL DISTRIBUTION WIDTH 15.1 % (11.5-14.5)
[2018-02-25 09:07] LABS: WHITE BLOOD COUNT 5.6 10^3/ul (4.8-10.8)
[2018-02-25 09:14] LABS: HEMOGLOBIN A1C 7.8 % (0-5.9)
[2018-02-25 09:23] LABS: ALANINE AMINOTRANSFERASE 20 IU/L (13-69); ALBUMIN 2.6 g/dl (3.3-4.9); ALBUMIN/GLOBULIN RATIO 0.74; ALKALINE PHOSPHATASE 124 IU/L (42-121); ANION GAP 10 (8-16); ASPARTATE AMINO TRANSFERASE 35 IU/L (15-46); BLOOD UREA NITROGEN 43 mg/dl (7-20); CARBON DIOXIDE 22 mmol/L (21-31); CHLORIDE 113 mmol/L (97-110); CREATININE 2.26 mg/dl (0.44-1.00); GLUCOSE 123 mg/dl (70-220); POTASSIUM 4.1 mmol/L (3.5-5.1); SODIUM 141 mmol/L (135-144); TOTAL PROTEIN 6.1 g/dl (6.1-8.1)
[2018-02-25 11:57] LABS: FREE T4 (FREE THYROXINE) 1.03 ng/dl (0.78-2.44)
[2018-02-25 11:58] LABS: T4 (THYROXINE) 5.9 ug/dl (5.5-11.0)
[2018-02-25] MEDS: hydrALAzine 20 MG INJ IV (12:48)
[2018-02-25 15:59] LABS: ADD UMIC YES; UR ASCORBIC ACID NEGATIVE (NEGATIVE); UR BACTERIA FEW /HPF (NONE SEEN); UR BILIRUBIN (Dip) NEGATIVE (NEGATIVE); UR BLOOD (Dip) 1+ mg/dL (NEGATIVE); UR CLARITY CLEAR (CLEAR); UR COLOR YELLOW (YELLOW); UR GLUCOSE (Dip) 3+ mg/dL (NEGATIVE); UR KETONES (Dip) NEGATIVE (NEGATIVE); UR LEUKOCYTE ESTERASE (Dip) NEGATIVE Leu/ul (NEGATIVE); UR NITRITE (Dip) NEGATIVE (NEGATIVE); UR RBC 1 /HPF (0-5); UR SPECIFIC GRAVITY (Dip) 1.011 (1.003-1.030); UR SQUAMOUS EPITHELIAL CELL FEW /HPF (FEW); UR TOTAL PROTEIN (Dip) 3+ mg/dl (NEGATIVE); UR UROBILINOGEN (Dip) NEGATIVE (NEGATIVE); UR WBC 3 /HPF (0-5)
[2018-02-25 16:30] LABS: SODIUM,URINE RANDOM 78 mmol/L (30-90)
[2018-02-25 16:30] LABS: CREATININE,URINE RANDOM 41.53 mg/dl (20-320)
[2018-02-25 18:38] LABS: PROTEIN URINE > 600.0 mg/dl (0.0-11.9)
[2018-02-25] MEDS ORDERED: ZOLPIDEM 5 MG TAB PO (21:00)
[2018-02-25] MEDS: ATORVASTATIN 80 MG TAB PO (21:13)
[2018-02-26] MEDS: ACCU-CHEK XX (02:00)
[2018-02-26] MEDS: PANTOPRAZOLE (EC) 40 MG TAB PO (05:36)
[2018-02-26] MEDS: LEVOTHYROXINE 50 MCG TAB PO (05:37)
[2018-02-26] MEDS: HEPARIN 5,000 UNIT/0.5 ML VIAL SC ×3 (05:59→22:07)
[2018-02-26] MEDS: BUMETANIDE 1 MG INJ IV (06:00)
[2018-02-26 06:24] LABS: ADD MAN DIFF? NO
[2018-02-26 06:26] LABS: BASOPHILS % 0.7 % (0.0-2.0); EOSINOPHILS # 0.1 10^3/ul (0.0-0.5); EOSINOPHILS % 2.3 % (0.0-7.0); HEMATOCRIT 45.8 % (37.0-47.0); HEMOGLOBIN 13.9 g/dl (12.0-16.0); LYMPHOCYTES # 1.9 10^3/ul (0.8-2.9); LYMPHOCYTES % 34.5 % (15.0-51.0); MEAN CORPUSCULAR HEMOGLOBIN 27.5 pg (29.0-33.0); MEAN CORPUSCULAR HGB CONC 30.3 g/dl (32.0-37.0); MEAN CORPUSCULAR VOLUME 90.7 fl (82.0-101.0); MEAN PLATELET VOLUME 9.6 fl (7.4-10.4); MONOCYTE # 0.2 10^3/ul (0.3-0.9); MONOCYTES % 4.3 % (0.0-11.0); NEUTROPHIL # 3.3 10^3/ul (1.6-7.5); PLATELET COUNT 281 10^3/UL (140-415); RED BLOOD COUNT 5.05 10^6/ul (4.20-5.40); RED CELL DISTRIBUTION WIDTH 15.6 % (11.5-14.5)
[2018-02-26 06:26] LABS: WHITE BLOOD COUNT 5.6 10^3/ul (4.8-10.8)
[2018-02-26 06:59] LABS: ANION GAP 10 (8-16); BLOOD UREA NITROGEN 44 mg/dl (7-20); CALCIUM 8.6 mg/dl (8.4-10.2); CARBON DIOXIDE 22 mmol/L (21-31); CHLORIDE 116 mmol/L (97-110); CREATININE 2.82 mg/dl (0.44-1.00); GLUCOSE 53 mg/dl (70-220); MAGNESIUM 2.1 mg/dl (1.7-2.5); POTASSIUM 4.1 mmol/L (3.5-5.1); SODIUM 144 mmol/L (135-144)
[2018-02-26 07:31] LABS: HEPATITIS B SURFACE ANTIGEN NEGATIVE (NEGATIVE)
[2018-02-26 07:48] LABS: HEPATITIS B CORE ANTIBODY REACTIVE (NEGATIVE); HEPATITIS C VIRAL ANTIBODY NEGATIVE (NEGATIVE)
[2018-02-26] MEDS: INSULIN ASPART [NOVOLOG] 3 ML PEN SC ×4 (07:55→20:28)
[2018-02-26] MEDS ORDERED: BUMETANIDE 1 MG INJ IV (09:00)
[2018-02-26] MEDS: METOPROLOL (XL) 50 MG TAB PO (09:13)
[2018-02-26] MEDS: GABAPENTIN 300 MG CAP PO ×2 (09:13→20:26)
[2018-02-26 09:19] LABS: HEPATITIS B SURFACE ANTIBODY INDETERMINATE (NEGATIVE)
[2018-02-26] MEDS: hydrALAzine 20 MG INJ IV (16:11)
[2018-02-26 17:26] LABS: CREATININE, RANDOM URINE 49 mg/dL (20-320); MICROALBUMIN 379.1 mg/dL; MICROALBUMIN/CREATININE RATIO 7737 (<30)
[2018-02-26] MEDS: ACETAMINOPHEN 325 MG TAB PO (20:26)
[2018-02-26] MEDS: ATORVASTATIN 80 MG TAB PO (20:26)
[2018-02-26] MEDS: INSULIN GLARGINE [LANtus] 3 ML PEN SC (20:38)
[2018-02-27] MEDS: ACCU-CHEK XX (02:00)
[2018-02-27] MEDS: PANTOPRAZOLE (EC) 40 MG TAB PO (05:47)
[2018-02-27] MEDS: HEPARIN 5,000 UNIT/0.5 ML VIAL SC ×3 (05:49→20:48)
[2018-02-27] MEDS: INSULIN ASPART [NOVOLOG] 3 ML PEN SC ×4 (07:55→20:47)
[2018-02-27] MEDS: LEVOTHYROXINE 50 MCG TAB PO (08:25)
[2018-02-27] MEDS: GABAPENTIN 300 MG CAP PO ×2 (08:25→20:45)
[2018-02-27] MEDS: BUMETANIDE 1 MG INJ IV (08:25)
[2018-02-27] MEDS: METOPROLOL (XL) 50 MG TAB PO (08:26)
[2018-02-27 08:41] LABS: ADD MAN DIFF? NO
[2018-02-27 08:50] LABS: BASOPHIL # 0.1 10^3/ul (0.0-0.1); EOSINOPHILS # 0.2 10^3/ul (0.0-0.5); EOSINOPHILS % 3.7 % (0.0-7.0); HEMATOCRIT 41.7 % (37.0-47.0); HEMOGLOBIN 12.7 g/dl (12.0-16.0); LYMPHOCYTES # 2.3 10^3/ul (0.8-2.9); LYMPHOCYTES % 45.4 % (15.0-51.0); MEAN CORPUSCULAR HEMOGLOBIN 27.5 pg (29.0-33.0); MEAN CORPUSCULAR HGB CONC 30.5 g/dl (32.0-37.0); MEAN CORPUSCULAR VOLUME 90.3 fl (82.0-101.0); MEAN PLATELET VOLUME 10.3 fl (7.4-10.4); MONOCYTE # 0.3 10^3/ul (0.3-0.9); MONOCYTES % 6.1 % (0.0-11.0); NEUTROPHIL # 2.2 10^3/ul (1.6-7.5); NEUTROPHILS % 43.6 % (39.0-77.0); PLATELET COUNT 244 10^3/UL (140-415); RED BLOOD COUNT 4.62 10^6/ul (4.20-5.40); RED CELL DISTRIBUTION WIDTH 15.7 % (11.5-14.5)
[2018-02-27 08:50] LABS: WHITE BLOOD COUNT 5.1 10^3/ul (4.8-10.8)
[2018-02-27 09:09] LABS: ANION GAP 8 (8-16); BLOOD UREA NITROGEN 55 mg/dl (7-20); CALCIUM 8.3 mg/dl (8.4-10.2); CARBON DIOXIDE 23 mmol/L (21-31); CHLORIDE 116 mmol/L (97-110); CREATININE 2.56 mg/dl (0.44-1.00); GLUCOSE 96 mg/dl (70-220); MAGNESIUM 2.2 mg/dl (1.7-2.5); PHOSPHORUS 5.6 mg/dl (2.5-4.9); POTASSIUM 3.9 mmol/L (3.5-5.1); SODIUM 143 mmol/L (135-144)
[2018-02-27] MEDS: ACETAMINOPHEN 325 MG TAB PO (10:36)
[2018-02-27] MEDS ORDERED: morphine 2 MG INJ IV (11:30)
[2018-02-27 12:53] LABS: TROPONIN-I < 0.012 ng/ml (0.00-0.12)
[2018-02-27 19:30] LABS: TROPONIN-I < 0.012 ng/ml (0.00-0.12)
[2018-02-27] MEDS: ATORVASTATIN 80 MG TAB PO (20:44)
[2018-02-27] MEDS: INSULIN GLARGINE [LANtus] 3 ML PEN SC (20:47)
[2018-02-28 01:35] LABS: TROPONIN-I < 0.012 ng/ml (0.00-0.12)
[2018-02-28] MEDS: ACCU-CHEK XX (02:10)
[2018-02-28] MEDS: LEVOTHYROXINE 50 MCG TAB PO (05:37)
[2018-02-28] MEDS: PANTOPRAZOLE (EC) 40 MG TAB PO (05:37)
[2018-02-28] MEDS: HEPARIN 5,000 UNIT/0.5 ML VIAL SC ×3 (05:44→21:17)
[2018-02-28 07:37] LABS: ADD MAN DIFF? NO
[2018-02-28 07:43] LABS: WHITE BLOOD COUNT 5.1 10^3/ul (4.8-10.8)
[2018-02-28 07:43] LABS: BASOPHILS % 0.8 % (0.0-2.0); EOSINOPHILS # 0.2 10^3/ul (0.0-0.5); EOSINOPHILS % 3.5 % (0.0-7.0); HEMATOCRIT 40.6 % (37.0-47.0); HEMOGLOBIN 12.4 g/dl (12.0-16.0); LYMPHOCYTES % 38.8 % (15.0-51.0); MEAN CORPUSCULAR HEMOGLOBIN 27.9 pg (29.0-33.0); MEAN CORPUSCULAR HGB CONC 30.5 g/dl (32.0-37.0); MEAN CORPUSCULAR VOLUME 91.4 fl (82.0-101.0); MONOCYTE # 0.3 10^3/ul (0.3-0.9); MONOCYTES % 5.5 % (0.0-11.0); NEUTROPHIL # 2.6 10^3/ul (1.6-7.5); PLATELET COUNT 219 10^3/UL (140-415); RED BLOOD COUNT 4.44 10^6/ul (4.20-5.40); RED CELL DISTRIBUTION WIDTH 15.6 % (11.5-14.5)
[2018-02-28] MEDS: INSULIN ASPART [NOVOLOG] 3 ML PEN SC ×4 (07:55→20:13)
[2018-02-28] MEDS: BUMETANIDE 1 MG INJ IV (08:01)
[2018-02-28 08:02] LABS: ANION GAP 10 (8-16); BLOOD UREA NITROGEN 56 mg/dl (7-20); CALCIUM 8.1 mg/dl (8.4-10.2); CARBON DIOXIDE 22 mmol/L (21-31); CHLORIDE 117 mmol/L (97-110); CREATININE 2.43 mg/dl (0.44-1.00); GLUCOSE 54 mg/dl (70-220); MAGNESIUM 2.1 mg/dl (1.7-2.5); PHOSPHORUS 5.3 mg/dl (2.5-4.9); POTASSIUM 4.1 mmol/L (3.5-5.1); SODIUM 145 mmol/L (135-144)
[2018-02-28] MEDS: ACETAMINOPHEN 325 MG TAB PO (08:02)
[2018-02-28] MEDS: METOPROLOL (XL) 50 MG TAB PO (08:02)
[2018-02-28] MEDS: GABAPENTIN 300 MG CAP PO ×2 (08:09→20:06)
[2018-02-28] MEDS: SEVELAMER 400 MG TAB PO ×2 (11:40→17:32)
[2018-02-28] MEDS: hydrALAzine 20 MG INJ IV (11:41)
[2018-02-28] MEDS: ATORVASTATIN 80 MG TAB PO (20:06)
[2018-03-01] MEDS: hydrALAzine 20 MG INJ IV ×3 (01:57→20:30)
[2018-03-01] MEDS: ACCU-CHEK XX (02:08)
[2018-03-01 06:23] LABS: ADD MAN DIFF? NO
[2018-03-01 06:31] LABS: BASOPHILS % 0.8 % (0.0-2.0); EOSINOPHILS # 0.2 10^3/ul (0.0-0.5); EOSINOPHILS % 3.4 % (0.0-7.0); HEMOGLOBIN 12.3 g/dl (12.0-16.0); LYMPHOCYTES # 2.1 10^3/ul (0.8-2.9); LYMPHOCYTES % 41.1 % (15.0-51.0); MEAN CORPUSCULAR HEMOGLOBIN 27.9 pg (29.0-33.0); MEAN CORPUSCULAR HGB CONC 30.8 g/dl (32.0-37.0); MEAN CORPUSCULAR VOLUME 90.7 fl (82.0-101.0); MEAN PLATELET VOLUME 10.3 fl (7.4-10.4); MONOCYTE # 0.3 10^3/ul (0.3-0.9); MONOCYTES % 5.6 % (0.0-11.0); NEUTROPHIL # 2.5 10^3/ul (1.6-7.5); NEUTROPHILS % 48.9 % (39.0-77.0); PLATELET COUNT 233 10^3/UL (140-415); RED BLOOD COUNT 4.41 10^6/ul (4.20-5.40); RED CELL DISTRIBUTION WIDTH 15.2 % (11.5-14.5)
[2018-03-01 06:57] LABS: ANION GAP 8 (8-16); BLOOD UREA NITROGEN 57 mg/dl (7-20); CALCIUM 8.2 mg/dl (8.4-10.2); CARBON DIOXIDE 23 mmol/L (21-31); CHLORIDE 116 mmol/L (97-110); CREATININE 2.41 mg/dl (0.44-1.00); GLUCOSE 221 mg/dl (70-220); MAGNESIUM 2.1 mg/dl (1.7-2.5); PHOSPHORUS 4.5 mg/dl (2.5-4.9); POTASSIUM 4.8 mmol/L (3.5-5.1); SODIUM 142 mmol/L (135-144)
[2018-03-01] MEDS: LEVOTHYROXINE 50 MCG TAB PO (07:01)
[2018-03-01] MEDS: PANTOPRAZOLE (EC) 40 MG TAB PO (07:02)
[2018-03-01] MEDS: HEPARIN 5,000 UNIT/0.5 ML VIAL SC ×3 (07:03→22:07)
[2018-03-01] MEDS: SEVELAMER 400 MG TAB PO ×3 (08:18→17:26)
[2018-03-01] MEDS: GABAPENTIN 300 MG CAP PO ×2 (08:19→20:29)
[2018-03-01] MEDS: METOPROLOL (XL) 50 MG TAB PO (08:19)
[2018-03-01] MEDS: INSULIN ASPART [NOVOLOG] 3 ML PEN SC ×7 (08:21→20:38)
[2018-03-01] MEDS: BUMETANIDE 1 MG INJ IV (08:22)
[2018-03-01] MEDS: ACETAMINOPHEN 325 MG TAB PO (10:04)
[2018-03-01] MEDS ORDERED: INSULIN GLARGINE [LANtus] 3 ML PEN SC (20:00)
[2018-03-01] MEDS: ATORVASTATIN 80 MG TAB PO (20:29)
[2018-03-01] MEDS: INSULIN GLARGINE [LANtus] 3 ML PEN SC (20:36)
[2018-03-02] MEDS: ACCU-CHEK XX (02:31)
[2018-03-02] MEDS: PANTOPRAZOLE (EC) 40 MG TAB PO (06:42)
[2018-03-02] MEDS: ACETAMINOPHEN 325 MG TAB PO ×2 (06:42→17:21)
[2018-03-02] MEDS: LEVOTHYROXINE 50 MCG TAB PO (06:47)
[2018-03-02] MEDS: HEPARIN 5,000 UNIT/0.5 ML VIAL SC ×3 (06:50→21:40)
[2018-03-02] MEDS: INSULIN ASPART [NOVOLOG] 3 ML PEN SC ×7 (07:34→21:38)
[2018-03-02] MEDS: METOPROLOL (XL) 50 MG TAB PO (08:20)
[2018-03-02] MEDS: SEVELAMER 400 MG TAB PO ×3 (08:21→17:22)
[2018-03-02] MEDS: GABAPENTIN 300 MG CAP PO ×2 (08:21→21:37)
[2018-03-02] MEDS: hydrALAzine 20 MG INJ IV ×2 (09:23→16:30)
[2018-03-02] MEDS: NIFEdipine (XL) 30 MG TAB PO (12:21)
[2018-03-02] MEDS: BUMETANIDE 1 MG TAB PO (17:48)
[2018-03-02] MEDS: ATORVASTATIN 80 MG TAB PO (21:37)
[2018-03-02] MEDS: INSULIN GLARGINE [LANtus] 3 ML PEN SC (21:39)
[2018-03-03] MEDS: ACCU-CHEK XX (01:46)
[2018-03-03] MEDS: PANTOPRAZOLE (EC) 40 MG TAB PO (06:04)
[2018-03-03] MEDS: BUMETANIDE 1 MG TAB PO ×2 (06:04→18:00)
[2018-03-03] MEDS: LEVOTHYROXINE 50 MCG TAB PO (06:04)
[2018-03-03] MEDS: HEPARIN 5,000 UNIT/0.5 ML VIAL SC ×2 (06:07→14:48)
[2018-03-03 07:17] LABS: ANION GAP 9 (8-16); BLOOD UREA NITROGEN 55 mg/dl (7-20); CALCIUM 8.3 mg/dl (8.4-10.2); CARBON DIOXIDE 23 mmol/L (21-31); CHLORIDE 115 mmol/L (97-110); CREATININE 2.11 mg/dl (0.44-1.00); GLUCOSE 157 mg/dl (70-220); PHOSPHORUS 4.1 mg/dl (2.5-4.9); POTASSIUM 4.4 mmol/L (3.5-5.1); SODIUM 143 mmol/L (135-144)
[2018-03-03] MEDS: INSULIN ASPART [NOVOLOG] 3 ML PEN SC ×6 (08:05→17:31)
[2018-03-03] MEDS: GABAPENTIN 300 MG CAP PO (08:12)
[2018-03-03] MEDS: METOPROLOL (XL) 50 MG TAB PO (08:13)
[2018-03-03] MEDS: SEVELAMER 400 MG TAB PO ×3 (08:13→18:00)
[2018-03-03] MEDS: NIFEdipine (XL) 30 MG TAB PO (08:14)
[2018-03-03] MEDS: hydrALAzine 20 MG INJ IV (13:49)
[2018-03-03] MEDS: LISINOPRIL 5 MG TAB PO (15:46)
== END 2018-03-03 18:45 | disposition home or self-care (01) | DRG 683 ==
LOC: TEL 22:02 → MS2 02-28 14:25 → E/R 16:09 → TEL 19:49
DX: N17.9 Acute kidney failure, unspecified (principal); E87.0 Hyperosmolality and hypernatremia; E11.22 Type 2 diabetes mellitus with diabetic chronic kidney disease; N18.4 Chronic kidney disease, stage 4 (severe); E11.21 Type 2 diabetes mellitus with diabetic nephropathy; I12.9 Hypertensive chronic kidney disease with stage 1 through stage 4 chronic kidney disease, or unspecified chronic kidney disease; J01.90 Acute sinusitis, unspecified; E78.5 Hyperlipidemia, unspecified; E03.9 Hypothyroidism, unspecified; R07.9 Chest pain, unspecified; Z79.4 Long term (current) use of insulin
CPT/HCPCS: 36415; 70220; 70450; 71045; 80048; 80053; 81001; 81003; 82043; 82962; 83036; 83735; 83880; 84100; 84155; 84300; 84436; 84439; 84443; 84484; 85025; 85610; 85730; 86704; 86706; 86708; 86709; 86803; 87340; 93005; 93306; 93970; 96372; 96374; 96375; 99285-25

== ENCOUNTER 2018-09-22 07:19 | Day surgery (SDC) | payer BC ==
[2018-09-22] MEDS ORDERED: SOD CHLORIDE 0.9% 1,000 ML IV (08:42)
[2018-09-22] MEDS: METOPROLOL 100 MG TAB (09:12)
[2018-09-22] MEDS: FENTAnyl 50 MCG/ML VIAL (09:47)
[2018-09-22] MEDS: hydrALAzine 20 MG INJ (10:06)
[2018-09-22] MEDS: MIDAZOLAM 1 MG/ML 2 ML INJ (10:15)
[2018-09-22] MEDS: GELATIN 12MM X 7 MM SPONGE (10:35)
[2018-09-22] MEDS: LIDOCAINE 1% (MPF) 5 ML VIAL (10:36)
[2018-09-22] MEDS ORDERED: HYDROCODONE/APAP (5/325) TAB PO (11:00)
== END 2018-09-22 13:00 | disposition home or self-care (01) ==
LOC: SDS 07:19
DX: N26.9 Renal sclerosis, unspecified (principal); I12.0 Hypertensive chronic kidney disease with stage 5 chronic kidney disease or end stage renal disease; E11.22 Type 2 diabetes mellitus with diabetic chronic kidney disease; N18.5 Chronic kidney disease, stage 5
CPT/HCPCS: 50200; 77012; 82962

== ENCOUNTER 2018-11-20 14:37 | Emergency (ER) | payer BC | END 2018-11-20 19:08 | disposition home or self-care (01) | LOC: FTE 14:37 | DX: J11.1 Influenza due to unidentified influenza virus with other respiratory manifestations (principal); I10 Essential (primary) hypertension; E11.9 Type 2 diabetes mellitus without complications; Z79.4 Long term (current) use of insulin | CPT/HCPCS: 71045; 99283-25 ==